=== PATIENT | female | born 1985 | race Caucasian/White ===

== ENCOUNTER 2021-06-19 12:05 | Outpatient (CLI) | payer BC | END 2021-06-19 12:06 | disposition home or self-care (01) | LOC: CSHCT 12:05 | PROVIDERS: ATTEND Urology | DX: N20.0 Calculus of kidney (principal); R35.0 Frequency of micturition | CPT/HCPCS: 74178 ==

== ENCOUNTER 2021-08-16 11:15 | Outpatient (CLI) | payer BC | END 2021-08-16 11:16 | disposition home or self-care (01) | LOC: CSHRAD 11:15 | PROVIDERS: ATTEND Urology | DX: N20.0 Calculus of kidney (principal); Z96.0 Presence of urogenital implants | CPT/HCPCS: 74018 ==

== ENCOUNTER 2021-08-22 16:11 | Outpatient (CLI) | payer BC | END 2021-08-22 16:12 | disposition home or self-care (01) | LOC: CSHRAD 16:11 | PROVIDERS: ATTEND Urology | DX: N20.0 Calculus of kidney (principal); N28.89 Other specified disorders of kidney and ureter | CPT/HCPCS: 74018 ==

== ENCOUNTER 2022-05-11 10:22 | Outpatient (CLI) | payer BC | END 2022-05-11 10:23 | disposition home or self-care (01) | LOC: CSHRAD 10:22 | PROVIDERS: ATTEND Urology | DX: N20.0 Calculus of kidney (principal); R35.0 Frequency of micturition; R82.994 Hypercalciuria; N13.30 Unspecified hydronephrosis | CPT/HCPCS: 74018 ==

== ENCOUNTER 2023-09-20 10:29 | Outpatient (CLI) | payer BC | END 2023-09-20 10:30 | disposition home or self-care (01) | LOC: CSHCT 10:29 | PROVIDERS: ATTEND Urology | DX: N20.0 Calculus of kidney (principal); R35.0 Frequency of micturition; N13.30 Unspecified hydronephrosis; R82.994 Hypercalciuria; N28.89 Other specified disorders of kidney and ureter | CPT/HCPCS: 74176 ==